=== PATIENT | male | born 1960 | race Caucasian/White ===

== ENCOUNTER 2019-05-21 17:07 | Emergency (ER) | payer MEDICARE, MEDICAID ==
[~2019-05-21] VITALS: Ht 167.6 cm; Wt 113.4 kg
--- NOTE | 2019-05-21 17:19 | NUR ---
PATIENT ARRIVED AT UNIT BIB [facility] FROM HOME. PATIENT A/O X 3. NO ACUTE DISTRESS. WITH REPORT OF BACK PAIN, S/P FALL, -KO. AT BEDSIDE. WILL CONTINUE TO MONITOR ACCORDINGLY
[2019-05-21] MEDS ORDERED: MORPHINE SULFATE INJ 2 MG/ML DISP.SYRIN IV ONE ×2 (17:30→20:30)
[2019-05-21] MEDS ORDERED: ONDANSETRON HCL/PF 4 MG/2 ML VIAL IVP ONE (17:30)
[2019-05-21] MEDS ORDERED: MORPHINE SULFATE INJ 4 MG/ML DISP.SYRIN ONE ×2 (17:36→20:28)
[2019-05-21] MEDS ORDERED: ONDANSETRON HCL/PF 4 MG/2 ML VIAL ONE ×2 (17:36→21:27)
[2019-05-21 17:38] LABS: BASOPHILS % (AUTO) 0.5 % (0.0-2.0); EOSINOPHILS % (AUTO) 0.4 % (0.0-6.0); HEMATOCRIT 44 % (39-51); HEMOGLOBIN 14.5 g/dL (13.5-17.5); LYMPHOCYTES # (AUTO) 1.1 /CMM (0.8-4.8); LYMPHOCYTES % (AUTO) 10.3 % (20.0-44.0); MEAN CORPUSCULAR HGB CONC 33 g/dl (31.0-36.0); MEAN CORPUSCULAR VOLUME 88 fL (80-96); MONOCYTES # (AUTO) 0.6 /CMM (0.1-1.30); MONOCYTES % (AUTO) 5.4 % (2.0-12.0); NEUTROPHILS # (AUTO) 8.7 /CMM (1.8-8.9); NEUTROPHILS % (AUTO) 83.4 % (43.0-81.0); PLATELET COUNT (AUTO) 118 /CMM (150-450); RED BLOOD CELL COUNT(AUTO) 4.98 MIL/uL (4.5-6.0); WHITE BLOOD COUNT (AUTO) 10.4 K/uL (4.3-11.0)
--- NOTE | 2019-05-21 17:43 | NUR ---
IV LINE ESTABLISHED ON LEFT AC. FIRE SUPERVISOR AT BEDSIDE FOR BLOOD DRAW
[2019-05-21 17:47] LABS: CALCIUM, SERUM 9.1 mg/dL (8.5-10.1); CREATININE 1.2 mg/dL (0.6-1.3); POTASSIUM 4.4 mmol/L (3.5-5.1)
[2019-05-21] MEDS ORDERED: IOHEXOL-300 100 ML VIAL IV ONE (18:04)
--- NOTE | 2019-05-21 19:10 | NUR ---
REPORT REC'D FROM KELBY CERVANTES FOR [facility].
--- NOTE | 2019-05-21 20:00 | NUR ---
PT APPEARS TO BE RESTING COMFORTABLY WITH NO S/S OF PAIN AT THIS TIME.
--- NOTE | 2019-05-21 20:10 | NUR ---
PT HAS HX OF CABG, HTN, AND HIGH CHOLESTEROL.
--- NOTE | 2019-05-21 20:15 | NUR ---
PT'S O2 SAT WAS AT 90% ON RA. PT PLACED ON 2L O2 VIA NC.
--- NOTE | 2019-05-21 20:28 | NUR ---
PT IS C/O 5/10 PAIN. B ESTEPHANIA GARDNER NOTIFIED.
[2019-05-21 20:33] VITALS: BP 121/73
--- NOTE | 2019-05-21 20:50 | NUR ---
PT ACCEPTED TO [facility] BY DR GOYAL, BED 4426-1. # FOR REPORT [phone]. [facility] ETA [phone]
--- NOTE | 2019-05-21 20:57 | NUR ---
Shamika ruelas in [place] - 05/21/19 at 2153 by PHAN CALLED [facility] IS AT [facility]
--- NOTE | 2019-05-21 20:57 | NUR ---
CALLING REPORT TO KELBY GARCIA
[2019-05-21] MEDS ORDERED: HYDROMORPHONE 1 MG/1 ML DISP.SYRIN ONE ×2 (21:27→22:32)
[2019-05-21] MEDS ORDERED: HYDROMORPHONE INJ 0.5 MG/0.5 ML SYRINGE IV ONE ×2 (21:30→23:00)
[2019-05-21] MEDS ORDERED: ONDANSETRON HCL/PF 4 MG/2 ML VIAL IV ONE (21:30)
--- NOTE | 2019-05-21 22:02 | NUR ---
PT APPEARS TO BE RESTING COMFORTABLY WITH NO S/S OF PAIN OR DISTRESS.
== END 2019-05-21 22:50 | disposition short-term general hospital (02) ==
LOC: ER 17:12
DX: S12.9XXA Fracture of neck, unspecified, initial encounter (principal); S30.810A Abrasion of lower back and pelvis, initial encounter; S00.01XA Abrasion of scalp, initial encounter; M25.562 Pain in left knee; I10 Essential (primary) hypertension; E78.5 Hyperlipidemia, unspecified; I25.2 Old myocardial infarction; Z95.818 Presence of other cardiac implants and grafts; W11.XXXA Fall on and from ladder, initial encounter; Y93.89 Activity, other specified; Y92.89 Other specified places as the place of occurrence of the external cause; Y99.8 Other external cause status
CPT/HCPCS: 36415; 70450; 71045; 72125; 73564; 74177; 80048; 85025; 85730; 96374; 96375; 96376; 99285; J1170 ×2; J2270 ×2; J2405 ×2; Q9967